=== PATIENT | male | born 1995 | race Caucasian/White ===

== ENCOUNTER 2018-07-21 11:04 | Emergency (ER) | payer SELFPAY ==
[2018-07-21 11:13] VITALS: BP 116/71; PULSE 78; RESP 15; TEMP 36.9; O2SAT 100; BMI 33.4
--- NOTE | 2018-07-21 11:19 | ED.NAVMDI ---
HPI - Nausea/Vomiting/Diarrhea General Chief complaint: Nausea/Vomiting/Diarrhea Stated complaint: Needs to be tested for Norovirus Time Seen by Provider: 07/21/18 11:18 Source: patient Mode of arrival: ambulatory Limitations: no limitations History of Present Illness HPI Narrative: 23-year-old male comes to the emergency department with complaint of vomiting and diarrhea that lasted less than 24 hours to 3 days ago. Patient states he has been asymptomatic since. He has not had any fevers. He has not had any nausea or vomiting. He had abdominal pain at the time but does not have any since. He has not had any diarrhea and has had normal bowel movements since. His last 1 was yesterday. No urinary issues no frequency urgency or dysuria. Patient has not had any chest pain or shortness of breath. He states he is a healthy male, no medical problems. No prior surgeries. No family history of ulcerative colitis or Crohn's. 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 Review of Systems Review of Systems ROS Unobtainable: All systems reviewed & are unremarkable except as noted in HPI and below Constitutional Denies chills and Denies fever(s) Gastrointestinal Gastrointestinal: Reports abdominal pain (Resolved), Denies change in bowel habits, Reports diarrhea (Resolved), Reports nausea (Resolved) and Reports vomiting (Resolved) Genitourinary Denies hematuria, Denies flank pain, Denies urinary frequency, Denies urinary incontinence and Denies urinary urgency Integumentary/Breasts Denies rash ON LICENSE OF [facility] Social History Smoking Status: Never smoker Social History Smoking Status: Never smoker Exam Narrative Exam Narrative: GENERAL: Alert and oriented x three, well-nourished, well-appearing male in no acute distress. HEENT: Head normocephalic, atraumatic, EOMI, pupils reactive, face symmetric, moist mucous membranes NECK: Supple, full range of motion CARDIOVASCULAR: Regular rate and rhythm without murmurs, rubs or gallops. RESPIRATORY: Breath sounds equal bilaterally, no wheezes rales or rhonchi. ABDOMEN: Soft, nontender. Normoactive bowel sounds all 4 quadrants. No guarding or rebound, rigidity, no mass : No CVA tenderness EXTREMITIES: Normal range of motion, no clubbing or edema. Neurovascularly intact NEUROLOGICAL: Cranial nerves II through XII grossly intact. Moving all extremities SKIN: Warm, dry, no petechiae, no rashes or lesions. Initial Vital Signs Initial Vital Signs: Vital Signs Temperature 98.4 F 07/21/18 11:13 Pulse Rate 78 07/21/18 11:13 Respiratory Rate 15 07/21/18 11:13 Blood Pressure 116/71 07/21/18 11:13 Pulse Oximetry 100 07/21/18 11:13 Course Orders Ordered: ED Orders 07/21/18 11:37 GI Panel (Film Array) Stat Vital Signs - 8 hr 07/21/18 11:13 Temperature 98.4 F Pulse Rate 78 Respiratory Rate 15 Blood Pressure 116/71 Pulse Oximetry 100 MDM - Nausea/Vomiting/Diarrhea MDM Narrative Medical decision making narrative: Patient does not require testing from a medical standpoint. His symptoms have completely resolved. He only had 24 hours of symptoms. Norovirus is less likely. 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 If patient is able to give a stool sample we did discuss with lab they can run it on a solid stool. If he is not able told patient we can give him a specimen cup that he can use and return with a sample. Outpatient lab testing is not available prior to ship leaving tomorrow in the early am. Discharge Plan Departure Patient Disposition: Home Clinical Impression: Patient request for diagnostic testing Discharge Date/Time: 07/21/18 12:01 Interventions: ED Discharge Assessment Last Done: 07/21/18 12:00 Activity Restrictions/Additional Instructions: You may return to work. If you have recurrent symptoms that I would recommend re-evaluation. If you are able to produce a stool sample we can test for the virus, if you are not making any stool testing for the virus is unlikely to produce a positive results. If you are able to provide a stool sample you may return it for testing to the ER. Stand Alone Forms: Work Release Note
== END 2018-07-21 12:01 | disposition home or self-care (01) ==
PROVIDERS: Emergency Provider Emergency Medicine
DX: Z01.89 Encounter for other specified special examinations (principal)
CPT/HCPCS: 99281; 99282